=== PATIENT | female | born 1995 | race Caucasian/White ===

== ENCOUNTER → 2021-06-06 | Outpatient (CLI) | payer BC ==
--- NOTE | 2021-06-06 12:39 | NM ---
EXAMINATION TYPE: NM hepatobiliary w EF DATE OF EXAM: 06/06/2021 COMPARISON: NONE INDICATION: Abdomen pain TECHNIQUE: After the intravenous administration of 4.6 mCi Tc 99m Mebrofenin hepatobiliary scintigrap hy is performed. Images were obtained immediately post injection. FINDINGS: There is prompt uptake and excretion of radiotracer by the liver. Extrahepatic ducts are identified at 6 minutes. The gallbladder is visualized within 16 minutes. Small bowel activity is noted within 24 minutes. At one hour 8 ounces of oral ensure plus is given to mimic CCK and gallbladder ejection fraction is c alculated at 60 %, which is in the normal range. (Normal >35% and <80%.). IMPRESSION: 1. Normal hepatobiliary scan
== END | disposition home or self-care (01) ==
LOC: RADNMMAIN 06:33
PROVIDERS: ATTEND Family Medicine
DX: R10.9 Unspecified abdominal pain (principal)
CPT/HCPCS: 78226; A9537

== ENCOUNTER → 2021-11-14 | Outpatient (CLI) | payer BC ==
--- NOTE | 2021-11-14 11:00 | US ---
EXAMINATION TYPE: US kidneys/renal and bladder DATE OF EXAM: 11/14/2021 COMPARISON: NONE CLINICAL HISTORY: R39.14 FEELING OF INCOMPLETE BLADDER EMPTYING. urinary frequency, feeling of incomp lete emptying for 2 weeks EXAM MEASUREMENTS: Right Kidney: 11.1 x 4.3 x 5.3 cm Left Kidney: 10.5 x 6.2 x 4.4 cm Post Void Residual Volume: 20.5 mL Right Kidney: prominent collecting system Left Kidney: no evidence of hydronephrosis Bladder: wnl Bilateral Jets seen: yes Normal Post Void Residual: yes No nephrolithiasis is seen. No masses are identified. The urinary bladder is anechoic. Bilateral u reteral jets are seen. IMPRESSION: Mild right-sided hydronephrosis.
== END | disposition home or self-care (01) ==
LOC: RADUSWWP 10:15
PROVIDERS: ATTEND Family Medicine
DX: N13.30 Unspecified hydronephrosis (principal)
CPT/HCPCS: 76770

== ENCOUNTER → 2021-12-01 | Outpatient (CLI) | payer BC ==
[2021-12-01 18:15] LABS: T4, Free (Free Thyroxine) 1.06 ng/dL (0.800-1.800)
== END | disposition home or self-care (01) ==
LOC: LABWHC1 11:16
PROVIDERS: ATTEND Student in an Organized Health Care Education/Training Program
DX: L63.8 Other alopecia areata (principal)
CPT/HCPCS: 36415; 84439; 84443; 86376

== ENCOUNTER 2022-03-04 17:29 | Emergency (ER) | payer OTHER, BC ==
[2022-03-04 18:13] VITALS: BP 143/79; PULSE 71; RESP 16; TEMP 98
--- NOTE | 2022-03-04 19:40 | ED ---
General Adult HPI - General Chief complaint: Needlestick/Exposure Stated complaint: Needle stick/[facility] Time Seen by Provider: 03/04/22 19:24 Source: patient Mode of arrival: ambulatory Limitations: no limitations - History of Present Illness Initial comments: Patient is a 27-year-old female who presents for testing and prophylactic treatment due to being poked by a dirty instrument at work today. Patient is a dental hygienist. She states she is unsure which instrument poked her but it did cause her to bleed minimally. It was not a needle. Patient has very small abrasion on her left pointer finger. States she checked the chart of the patient which did not list hepatitis or HIV. Patient would like screening and treatment. - Related Data Previous Rx's Medication Instructions Recorded Ibuprofen [Motrin] 600 mg PO Q6HR PRN #20 tab 03/17/16 Emtricitabine/Tenofovir (Tdf) 1 tab PO DAILY #30 tab 03/04/22 [Truvada 200 mg-300 mg Tablet] Ondansetron Odt [Zofran Odt] 4 mg PO Q8HR PRN 21 Days #63 tab 03/04/22 Allergies Allergy/AdvReac Type Severity Reaction Status Date / Time Sulfa (Sulfonamide Allergy Rash/Hives Verified 03/04/22 18:13 Antibiotics) sulfamethoxazole Allergy Unknown Verified 03/04/22 18:13 [From Bactrim] trimethoprim [From Bactrim] Allergy Unknown Verified 03/04/22 18:13 Review of Systems ROS Statement: Those systems with pertinent positive or pertinent negative responses have been documented in the HPI. ROS Other: All systems not noted in ROS Statement are negative. Past Medical History Past Medical History: No Reported History History of Any Multi-Drug Resistant Organisms: None Reported Past Surgical History: No Surgical Hx Reported Past Psychological History: No Psychological Hx Reported Smoking Status: Never smoker Past Alcohol Use History: Occasional Past Drug Use History: Marijuana General Exam Limitations: no limitations General appearance: alert Eye exam: Present: normal appearance, PERRL, EOMI. Absent: scleral icterus, conjunctival injection, periorbital swelling Respiratory exam: Present: normal lung sounds bilaterally. Absent: respiratory distress, wheezes, rales, rhonchi, stridor Cardiovascular Exam: Present: regular rate, normal rhythm, normal heart sounds. Absent: systolic murmur, diastolic murmur, rubs, gallop, clicks Neurological exam: Present: alert, oriented X3, CN II-XII intact Psychiatric exam: Present: normal affect, normal mood Skin exam: Present: warm, dry, intact, normal color. Absent: rash Course Vital Signs 03/04/22 18:11 Temperature 98 F Pulse Rate 71 Respiratory 16 Rate Blood Pressure 143/79 O2 Sat by Pulse 100 Oximetry Medical Decision Making - Medical Decision Making This is a 27-year-old female who was poked by a dirty instrument at the dental office she works at today. Thorough history and examination were performed. Post exposure screening was performed. Patient denied discussed the risks versus benefits of taking postexposure prophylactic HIV medication. Patient decided to take the medication. She was given the first dose in the emergency department. Patient will be sent home with the prescription as well as Zofran for any side effects. She is instructed to follow-up with her primary care provider as well as [facility] for monitoring of her labs as well as repeat testing. She verbalizes understanding and is agreeable to this plan. Dr. Thomas is my attending. Disposition Clinical Impression: Needlestick injury accident with exposure to body fluid, Encounter for human immunodeficiency virus test Disposition: HOME SELF-CARE Condition: Good Instructions (If sedation given, give patient instructions): Needle Stick Injuries (ED) Additional Instructions: Follow-up with primary care provider in 1-2 days. Follow-up with the [facility] in 1-2 days to schedule an appointment for repeat testing and monitoring of labs. Take Zofran as directed if you start to develop nausea from the medication. Return to the emergency department if you experience new, concerning, or worsening symptoms. Prescriptions: Emtricitabine/Tenofovir (Tdf) [Truvada 200 mg-300 mg Tablet] 1 tab PO DAILY #30 tab Ondansetron Odt [Zofran Odt] 4 mg PO Q8HR PRN 21 Days #63 tab PRN Reason: Nausea Is patient prescribed a controlled substance at d/c from ED?: No Referrals: Beverley Babcock DO [Primary Care Provider] - 1-2 days Benji Orr DO [STAFF PHYSICIAN] - 1-2 days Time of Disposition: 19:55
[2022-03-04] MEDS ORDERED: EMTRICITABINE/TENOFOVIR (TDF) 1 EACH, RALTEGRAVIR POTASSIUM 400 MG PO ONE ×2 (19:42)
[2022-03-05 04:25] LABS: Hepatitis C IgG Antibody Nonreactive (Nonreactive)
[2022-03-05 04:45] LABS: HIV 2 AB Non-Reactive (Non-Reactive); HIV AB P24 Non-Reactive (Non-Reactive); HIV P24 AG Non-Reactive (Non-Reactive)
[2022-03-05 05:30] LABS: Hepatitis B Surface Antibody Reactive (Nonreactive)
== END 2022-03-04 20:29 | disposition home or self-care (01) ==
LOC: EC 17:29
DX: Z11.4 Encounter for screening for human immunodeficiency virus [HIV] (principal); Z88.2 Allergy status to sulfonamides; Z88.8 Allergy status to other drugs, medicaments and biological substances; W46.1XXA Contact with contaminated hypodermic needle, initial encounter
CPT/HCPCS: 36415; 86706; 86803; 87390

== ENCOUNTER → 2022-07-31 | Outpatient (CLI) | payer BC ==
--- NOTE | 2022-07-31 08:59 | US ---
EXAMINATION TYPE: US abdomen complete DATE OF EXAM: 07/31/2022 COMPARISON: 03/17/2016 CT. CLINICAL HISTORY: R10.84 ABDOMINAL PAIN. TECHNIQUE: Multiple sonographic images of the abdomen are obtained. FINDINGS: EXAM MEASUREMENTS: Liver Length: 12.8 cm Gallbladder Wall: 0.2 cm CBD: 0.3 cm Spleen: 10.6 cm Right Kidney: 11.1 x 4.1 x 4.8 cm Left Kidney: 11.3 x 5.6 x 4.6 cm Pancreas: wnl as seen, head partially obscured by overlying bowel gas Liver: hyperechoic round structure right lobe measuring 1.5 x 1.3 x 1.6cm Gallbladder: wnl Evidence for sonographic Carmona's sign: no CBD: wnl Spleen: wnl Right Kidney: No hydronephrosis or masses seen Left Kidney: No hydronephrosis or masses seen Upper IVC: wnl Abd Aorta: wnl The liver is homogenous. The intrahepatic portion of the IVC and proximal abdominal aorta are within normal limits. There is no evidence of cholelithiasis. Common bile duct is unremarkable. The visu alized portions of the pancreas are homogenous. The spleen is unremarkable. Kidneys are symmetric a nd free of hydronephrosis. No renal lesions are seen. IMPRESSION: No acute intra-abdominal process. Hyperechoic lesion within the liver which is indeterminate measuring up to 1.6 cm. This can be furthe r characterized with CT with IV contrast liver mass protocol if clinically warranted. Finding is stat istically likely to represent a hepatic hemangioma.
== END | disposition home or self-care (01) ==
LOC: RADUSWWP 07:27
PROVIDERS: ATTEND Family Medicine
DX: R10.84 Generalized abdominal pain (principal); K76.9 Liver disease, unspecified
CPT/HCPCS: 76700

== ENCOUNTER → 2022-08-12 | Outpatient (CLI) | payer BC ==
--- NOTE | 2022-08-12 13:25 | CT ---
EXAMINATION TYPE: CT abdomen w con DATE OF EXAM: 08/12/2022 COMPARISON: Ultrasound 07/31/2022, CT scan 03/17/2016 HISTORY: RUQ pain CT DLP: 718 mGycm Automated exposure control for dose reduction was used. TECHNIQUE: Helical acquisition of images was performed from the lung bases through the top of iliac crest to include entire abdomen. CONTRAST: Performed with Oral Contrast and with IV Contrast, patient injected with 70cc mL of Isovue 300. FINDINGS: LUNG BASES: No significant abnormality is appreciated. LIVER/GB: There is a 1.4 cm hypodense lesion near the dome of the liver corresponding to the ultrasou nd abnormality. Delayed imaging does not demonstrate any peripheral or delayed filling in of the lesi on suggests hemangioma. Measures approximately 30 Hounsfield units.. PANCREAS: No significant abnormality is seen. SPLEEN: No significant abnormality is seen. ADRENALS: No significant abnormality is seen. KIDNEYS: No significant abnormality is seen. BOWEL: No significant abnormality is seen. LYMPH NODES: No significant abnormality is seen. OSSEOUS STRUCTURES: No significant abnormality is seen. OTHER: Aorta normal caliber. No free fluid. IMPRESSION: 1. A 1.4 cm lesion seen with by ultrasound within the liver is also noted by CT scan but is not demon strating characteristics of a simple cyst or hemangioma by delayed imaging. Recommend MRI of the live r.
== END | disposition home or self-care (01) ==
LOC: RADCTMAIN 11:13
PROVIDERS: ATTEND Family Medicine
DX: D37.6 Neoplasm of uncertain behavior of liver, gallbladder and bile ducts (principal); K76.89 Other specified diseases of liver
CPT/HCPCS: 74160; Q9967

== ENCOUNTER → 2023-07-21 | Outpatient (CLI) | payer BC ==
--- NOTE | 2023-07-21 12:04 | XR ---
EXAMINATION TYPE: XR abdomen 1V DATE OF EXAM: 07/21/2023 COMPARISON: None INDICATION: Abdomen pain TECHNIQUE: Single view abdomen supine view FINDINGS: There is a normal bowel gas pattern. Psoas margins are normal. No organomegaly is present. IMPRESSION: 1. Unremarkable Abdomen
== END | disposition home or self-care (01) ==
LOC: RADXRMAIN 11:39
PROVIDERS: ATTEND Internal Medicine
DX: R10.9 Unspecified abdominal pain (principal)
CPT/HCPCS: 74018

== ENCOUNTER 2024-03-12 04:18 | Emergency (ER) | payer BC ==
[2024-03-12 04:24] VITALS: RESP 16; TEMP 99.6
[2024-03-12] MEDS: SODIUM CHLORIDE 0.9% 1,000 ML IV ONE (04:56)
[2024-03-12] MEDS: ONDANSETRON 4 MG/2 ML VIAL IVP STA (04:57)
[2024-03-12 05:18] LABS: Basophils % (A) 0 %; Eosinophils % (A) 0 %; HGB 12.8 gm/dL (11.4-16.0); Lymphocytes # (A) 1.2 k/uL (1.0-4.8); Lymphocytes % (A) 11 %; MCH 29.7 pg (25.0-35.0); MCV 92.8 fL (80.0-100.0); Monocytes # (A) 0.3 k/uL (0-1.0); Monocytes % (A) 2 %; Neutrophils # (A) 9.8 k/uL (1.3-7.7); Neutrophils % (A) 86 %; Platelet Count 342 k/uL (150-450); RBC 4.31 m/uL (3.80-5.40); WBC 11.4 k/uL (3.8-10.6)
--- NOTE | 2024-03-12 05:18 | ED ---
General Adult HPI - General Chief complaint: Nausea/Vomiting/Diarrhea Stated complaint: NVD Time Seen by Provider: 03/12/24 04:20 Source: patient, EMS, RN notes reviewed, old records reviewed Mode of arrival: EMS Limitations: no limitations - History of Present Illness Initial comments: 29-year-old female presents for evaluation of nausea vomiting and central chest discomfort. Patient states that she was drinking alcohol earlier in the day. She had some vomiting and mild discomfort in the abdomen at that time. She had several total episodes. She developed central chest discomfort and subsequently began to hyperventilate resulting in numbness and tingling to the extremities. The symptoms are mostly resolved at the time my evaluation. Patient is otherwise healthy. She denies current . - Related Data Previous Rx's Medication Instructions Recorded Ibuprofen [Motrin] 600 mg PO Q6HR PRN #20 tab 03/17/16 Emtricitabine/Tenofovir (Tdf) 1 tab PO DAILY #30 tab 03/04/22 [Truvada 200 mg-300 mg Tablet] Ondansetron Odt [Zofran Odt] 4 mg PO Q8HR PRN 21 Days #63 tab 03/04/22 Allergies Allergy/AdvReac Type Severity Reaction Status Date / Time Sulfa (Sulfonamide Allergy Rash/Hives Verified 03/12/24 04:25 Antibiotics) sulfamethoxazole Allergy Unknown Verified 03/12/24 04:25 [From Bactrim] trimethoprim [From Bactrim] Allergy Unknown Verified 03/12/24 04:25 Review of Systems ROS Statement: Those systems with pertinent positive or pertinent negative responses have been documented in the HPI. ROS Other: All systems not noted in ROS Statement are negative. Past Medical History Past Medical History: No Reported History History of Any Multi-Drug Resistant Organisms: None Reported Past Surgical History: No Surgical Hx Reported Past Psychological History: No Psychological Hx Reported Smoking Status: Never smoker Past Alcohol Use History: Occasional Past Drug Use History: Marijuana General Exam General appearance: alert, in no apparent distress Head exam: Present: atraumatic, normocephalic Eye exam: Present: normal appearance, PERRL Neck exam: Present: normal inspection. Absent: tenderness, meningismus Respiratory exam: Present: normal lung sounds bilaterally. Absent: respiratory distress, wheezes Cardiovascular Exam: Present: regular rate, normal rhythm GI/Abdominal exam: Present: soft. Absent: distended, tenderness, guarding Extremities exam: Present: normal inspection, normal capillary refill Neurological exam: Present: alert, oriented X3, CN II-XII intact. Absent: motor sensory deficit Psychiatric exam: Present: normal affect, normal mood Skin exam: Present: warm, dry. Absent: cyanosis, diaphoretic Course Vital Signs 03/12/24 04:22 Temperature 99.6 F Pulse Rate 78 Respiratory 16 Rate Blood Pressure 110/67 O2 Sat by Pulse 98 Oximetry Medical Decision Making - Medical Decision Making Was pt. sent in by a medical professional or institution (, ROB, INTERNAL SPECIALIST, urgent care, hospital, or [facility]...) When possible be specific @ -No Did you speak to anyone other than the patient for history (EMS, parent, family, police, friend...)? What history was obtained from this source @ -No Did you review nursing and triage notes (agree or disagree)? Why? @ -I reviewed and agree with nursing and triage notes Were old charts reviewed (outside hosp., previous admission, EMS record, old EKG, old radiological studies, urgent care reports/EKG's, [facility] records)? Report findings @ -No old charts were reviewed Differential Abdominal Pain Women: Appendicitis, Cholecystitis, diverticulosis, ischemic bowel, pancreatitis, hepatitis, UTI, gastroenteritis, AAA, incarcerated hernia, bowel obstruction, constipation, inflammatory bowel, hepatitis, peptic ulcer disease, splenic infarction, perforated viscus, vulvitis, ovarian torsion, PID, kidney stone, placenta abruption, this is not meant to be an all-inclusive list EKG interpreted by me (3pts min.). @Sinus rhythm rate of 75, NV interval 134, QRS duration 88, QTc [address] segm ent elevation. X-rays interpreted by me (1pt min.). @ -None done CT interpreted by me (1pt min.). @ -None done U/S interpreted by me (1pt. min.). @ -None done What testing was considered but not performed or refused? (CT, X-rays, U/S, labs)? Why? @ -None What meds were considered but not given or refused? Why? @ -None Did you discuss the management of the patient with other professionals (pro fessionals i.e. , ROB, INTERNAL SPECIALIST, lab, RT, psych nurse, social work specialist, palliative care specialist, teacher, business development officer, corrections caseworker)? Give summary @ -No Was smoking cessation discussed for >3mins.? @ -No Was critical care preformed (if so, how long)? @ -No Were there social determinants of health that impacted care today? How? (Homelessness, low income, unemployed, alcoholism, drug addiction, transportation, low edu. Level, literacy, decrease access to med. care, long-term, rehab)? @ -No Was there de-escalation of care discussed even if they declined (Discuss DNR or withdrawal of care, Hospice)? DNR status @ -No What co-morbidities impacted this encounter? (DM, HTN, Smoking, COPD, CAD, Cancer, CVA, ARF, Chemo, Hep., AIDS, mental health diagnosis, sleep apnea, morbid obesity)? @ -None Was patient admitted / discharged? Hospital course, mention meds given and route, prescriptions, significant lab abnormalities, going to OR and other pertinent info. @ -[29-year-old female presenting with nausea vomiting after alcohol consumption. Patient had developed chest discomfort after vomiting. This is resolved at the time my evaluation. Patient has stable vitals and is in sinus rhythm. I did obtain basic laboratory testing and give IV hydration and antiemetics. Patient reevaluated overall patient feels moved. She is instructed on oral hydration and given strict return parameters. Undiagnosed new problem with uncertain prognosis? @ -No Drug Therapy requiring intensive monitoring for toxicity (Heparin, Nitro, Insulin, Cardizem)? @ -No Were any procedures done? @ -No Diagnosis/symptom? @ -[Vomiting Acute, or Chronic, or Acute on Chronic? @ -Acute Uncomplicated (without systemic symptoms) or Complicated (systemic symptoms)? @ -[default Side effects of treatment? @ -No Exacerbation, Progression, or Severe Exacerbation? @ -No Poses a threat to life or bodily function? How? (Chest pain, USA, PA, pneumonia, PE, COPD, DKA, ARF, appy, cholecystitis, CVA, Diverticulitis, Homicidal, Suicidal, threat to staff... and all critical care pts) @ -No - Lab Data Result diagrams: 03/12/24 04:50 03/12/24 04:50 Lab Results 03/12/24 03/12/24 03/12/24 Range/Units 04:50 04:50 04:55 WBC 11.4 H (3.8-10.6) k/uL RBC 4.31 (3.80-5.40) m/uL Hgb 12.8 (11.4-16.0) gm/dL Hct 40.0 (34.0-46.0) % MCV 92.8 (80.0-100.0) fL MCH 29.7 (25.0-35.0) pg MCHC 32.0 (31.0-37.0) g/dL RDW 12.0 (11.5-15.5) % Plt Count 342 (150-450) k/uL MPV 7.0 Neutrophils % 86 % Lymphocytes % 11 % Monocytes % 2 % Eosinophils % 0 % Basophils % 0 % Neutrophils # 9.8 H (1.3-7.7) k/uL Lymphocytes # 1.2 (1.0-4.8) k/uL Monocytes # 0.3 (0-1.0) k/uL Eosinophils # 0.0 (0-0.7) k/uL Basophils # 0.0 (0-0.2) k/uL Sodium 138 (137-145) mmol/L Potassium 3.8 (3.5-5.1) mmol/L Chloride 108 H (98-107) mmol/L Carbon Dioxide 19 L (22-30) mmol/L Anion Gap 11 mmol/L BUN 7 (7-17) mg/dL Creatinine 0.47 L (0.52-1.04) mg/dL Est GFR (CKD-EPI)AfAm >90 (>60 ml/min/1.73 sqM) Est GFR (CKD-EPI)NonAf >90 (>60 ml/min/1.73 sqM) Glucose 106 H (74-99) mg/dL Calcium 9.6 (8.4-10.2) mg/dL Total Bilirubin 0.5 (0.2-1.3) mg/dL AST 21 (14-36) U/L ALT 14 (4-34) U/L Alkaline Phosphatase 52 (38-126) U/L Total Protein 7.1 (6.3-8.2) g/dL Albumin 4.6 (3.5-5.0) g/dL Urine Color Colorless Urine Appearance Clear (Clear) Urine pH 7.5 (5.0-8.0) Ur Specific [place] 1.004 (1.001-1.035) Urine Protein Negative (Negative) Urine Glucose (UA) Negative (Negative) Urine Ketones 1+ H (Negative) Urine Blood Negative (Negative) Urine Nitrite Negative (Negative) Urine Bilirubin Negative (Negative) Urine Urobilinogen <2.0 (<2.0) mg/dL Ur Leukocyte Esterase Negative (Negative) Disposition Clinical Impression: Dehydration, Vomiting Disposition: HOME SELF-CARE Condition: Fair Instructions (If sedation given, give patient instructions): Acute Nausea and Vomiting (ED) Additional Instructions: Please stay hydrated. Please monitor symptoms closely and if symptoms should worsen please return to the emergency department. Is patient prescribed a controlled substance at d/c from ED?: No Referrals: Beverley Babcock DO [Primary Care Provider] - 1-2 days Time of Disposition: 05:59
[2024-03-12 05:33] LABS: ALT 14 U/L (4-34); AST 21 U/L (14-36); African American GFR (CKD) >90 (>60 ml/min/1.73 sqM); Albumin 4.6 g/dL (3.5-5.0); Alkaline Phosphatase 52 U/L (38-126); Anion Gap 11 mmol/L; Blood Urea Nitrogen 7 mg/dL (7-17); Calcium 9.6 mg/dL (8.4-10.2); Carbon Dioxide 19 mmol/L (22-30); Chloride 108 mmol/L (98-107); Glucose 106 mg/dL (74-99); Non-African American GFR(CKD) >90 (>60 ml/min/1.73 sqM); Potassium 3.8 mmol/L (3.5-5.1); Sodium 138 mmol/L (137-145); Total Bilirubin 0.5 mg/dL (0.2-1.3); Total Protein 7.1 g/dL (6.3-8.2)
[2024-03-12 05:36] LABS: Appearance,Urine Clear (Clear); Bilirubin,Urine Negative (Negative); Blood,Urine Negative (Negative); Color,Urine Colorless; Glucose,Urine (UA) Negative (Negative); Ketones,Urine 1+ (Negative); Leukocyte Esterase,Urine Negative (Negative); Nitrite,Urine Negative (Negative); PH, Urine 7.5 (5.0-8.0); Protein,Urine Negative (Negative); Specific Gravity,Urine 1.004 (1.001-1.035); Urobilinogen,Urine <2.0 mg/dL (<2.0)
[2024-03-12 06:16] VITALS: BP 100/66; PULSE 72
== END 2024-03-12 06:15 | disposition home or self-care (01) ==
LOC: EC 04:18
DX: E86.0 Dehydration (principal); R11.2 Nausea with vomiting, unspecified; Z88.2 Allergy status to sulfonamides; Z88.8 Allergy status to other drugs, medicaments and biological substances
CPT/HCPCS: 36415; 93005; 80053; 85025; 81003; 99284; 96374; 96361; J2405